=== PATIENT | female | born 1955 | race Caucasian/White ===

== ENCOUNTER 2020-08-05 09:40 | Observation (INO) ==
[2020-08-05 12:03] LABS: Basophils % 0.3 % (0.0-0.8); Eosinophils # 0.2 10*3/uL (0.0-0.87); Eosinophils % 2.5 % (0.00-10.9); Hematocrit 41.8 VOL% (35.7-47.0); Hemoglobin 13.9 GM/DL (12.0-16.0); Immature Granulocytes % 0.3 %; Immature Granulocytes Absolute 0.02 #; Lymphocytes # 1.5 10*3/uL (1.4-4.0); Lymphocytes % 23.7 % (21.3-54.2); Mean Corpuscular HGB Conc 33.3 GM/DL (32-36); Mean Corpuscular Volume 93.9 FL (87-102); Mean Platelet Volume 9.2 FL (9.6-12.0); Monocytes % 9.2 % (1.7-12.7); Platelet Count 246 T/CUMM (130-400); Red Blood Count 4.45 MC/CUMM (3.8-5.5); Red Cell Distribution Width 12.8 % (9.3-17.3); White Blood Count 6.5 T/CUMM (4-12)
[2020-08-05 12:36] LABS: Albumin 3.7 G/DL (3.4-5.0); Bilirubin,Total 0.6 MG/DL (0.2-1.0); Calcium 9.1 MG/DL (8.5-10.1); Osmolality,Calculated 274.8 MOS/KG (273-304); Potassium 4.2 MMOL/L (3.5-5.1); Total Protein 8.1 G/DL (6.4-8.2)
[2020-08-05] MEDS ORDERED: ACETAMINOPHEN 325 MG TABLET PO PRN (13:47)
[2020-08-05] MEDS ORDERED: DEXTROSE 50% 25 GM/50 ML VIAL IV PRN ×2 (13:47)
[2020-08-05] MEDS ORDERED: GLUCAGON 1 MG VIAL IM PRN ×2 (13:47)
[2020-08-05] MEDS ORDERED: FLUoxetine 20 MG CAPSULE PO SCH (21:00)
[2020-08-05] MEDS ORDERED: MELATONIN 3 MG TABLET PO SCH (21:00)
[2020-08-06 08:21] VITALS: BP 167/84
[2020-08-06] MEDS ORDERED: CYANOCOBALAMIN 500 MCG TABLET PO SCH (09:00)
[2020-08-06] MEDS ORDERED: TOPIRAMATE 25 MG TABLET PO SCH ×2 (09:00→21:00)
[2020-08-06] MEDS ORDERED: CHOLECALCIFEROL 1,000 UNIT TABLET PO SCH (09:00)
[2020-08-06] MEDS ORDERED: LOSARTAN 50 MG TABLET PO SCH ×2 (09:00)
[2020-08-06] MEDS ORDERED: ASPIRIN EC 81 MG TABLET PO SCH (09:00)
[2020-08-06] MEDS ORDERED: FUROSEMIDE 20 MG TABLET PO SCH (09:00)
[2020-08-06] MEDS ORDERED: amLODIPine 5 MG TABLET PO SCH (09:00)
[2020-08-06] MEDS ORDERED: ENOXAPARIN 40 MG/0.4 ML SYRINGE SUBCUT SCH (12:00)
[2020-08-06] MEDS ORDERED: ROSUVASTATIN 10 MG TABLET PO SCH (21:00)
== END 2020-08-06 10:35 | disposition home or self-care (01) ==
LOC: N.ED 09:40 → N.EDINP 09:40 → N.4E 19:37
PROVIDERS: ADMIT Internal Medicine; ATTEND Internal Medicine